=== PATIENT | male | born 1975 | race Caucasian/White ===

== ENCOUNTER 2018-12-19 20:14 | Emergency (ER) | payer SELFPAY ==
[~2018-12-19] VITALS: Ht 175.3 cm; Wt 65.0 kg
[~2018-12-19 20:14] MED LIST: ALBU18HF INHALATION; AMOX500C2 PO; IBUP-1542 PO; PHEN177S43 MT
[2018-12-19 20:17] VITALS: Ht 175.3 cm; Wt 65.0 kg
[2018-12-19 22:03] VITALS: BP 122/78; PULSE 66; RESP 18
--- NOTE | 2018-12-19 22:35 | ERD ---
ER Documentation Chief Complaint Chief Complaint SORE THROAT X 2 DAYS. HPI 43-year-old male brought in by with concerns for sore throat for the past 2 days. Symptoms constant and worse with eating. Associated symptoms include mild cough and shortness of breath only while coughing. He took no medication for relief of symptoms. He denies any fevers, chills, cough, chest pain, or other symptoms at this time. ROS All systems reviewed and are negative except as per history of present illness. Medications Home Meds Active Scripts Phenol* (Chloraseptic* [place]) 177 Ml [place].pump, 2 SPRAY MT Q2H PRN for SORE THROAT, #1 BOTTLE Prov:ARMANI HINOJOSA PA-C 12/19/18 Ibuprofen* (Motrin*) 600 Mg Tab, 600 MG PO Q6, #30 TAB Prov:ARMANI HINOJOSA PA-C 12/19/18 Amoxicillin* (Amoxicillin*) 500 Mg Cap, 500 MG PO TID for 10 Days, CAP Prov:ARMANI HINOJOSA PA-C 12/19/18 Albuterol Sulfate* (Ventolin HFA*) 18 Gm Hfa.aer.ad, 2 PUFF INHALATION Q4H, #1 INHALER Prov:ARMANI HINOJOSA PA-C 12/19/18 Allergies Allergies: Coded Allergies: No Known Allergy (Unverified , 12/19/18) PMhx/Soc Medical and Surgical Hx: pt denies Medical Hx, pt denies Surgical Hx Hx Alcohol Use: No Hx Substance Use: No Hx Tobacco Use: No Smoking Status: Never smoker FmHx Family History: No diabetes Physical Exam Vitals Vital Signs Date Temp Pulse Resp B/P (MAP) Pulse Ox O2 O2 Flow FiO2 Time Delivery Rate 12/19/18 99.0 66 18 122/78 97 Room Air 22:03 (93) 12/19/18 98.5 65 16 143/82 98 20:17 (102) Physical Exam const: No acute distress Head: Atraumatic Eyes: Normal Conjunctiva ENT: Normal External Ears, Nose and Mouth. Bilateral tonsillar hypertrophy and erythema. Scant exudate noted on the left. Uvula is midline. Airway is patent. Neck: Full range of motion. No meningismus. Negative Kernig or Brudzinski sign. Tender anterior cervical lymphadenopathy. Resp: No crackles. No respiratory distress. Mild inspiratory wheeze noted to the right lower lung field Cardio: Regular rate and rhythm, no murmurs Abd: Soft, non tender, non distended. Normal bowel sounds Skin: No petechiae or rashes Back: No midline or flank tenderness Ext: No cyanosis, or edema Neur: Awake and alert Psych: Normal Mood and Affect Procedures/MDM 43-year-old male presents emergency department complaining of sore throat and cough. History and physical examination was consistent with pharyngitis, presumed strep. He will be treated as an outpatient with prescription for phenol, ibuprofen, amoxicillin, Ventolin inhaler. No evidence to suggest status asthmaticus, peritonsillar abscess, sepsis, serious bacterial infection, or other emergent process. Patient was in agreement with the diagnosis, plan company for follow-up. He was advised to return immediately for any new or worsening or concerning symptoms. Departure Diagnosis: Primary Impression: Acute pharyngitis Pharyngitis/tonsillitis etiology: unspecified etiology Qualified Codes: J02.9 - Acute pharyngitis, unspecified Condition: Fair Patient Instructions: Pharyngitis, Strep (Presumed) [facility] Usted se garza hecho un examen mdico de control que le indica que no est en matthew condicin que requiera tratamiento urgente en el Departamento de Emergencia. Un estudio ms profundo y el tratamiento de bowie condicin pueden esperar sin ningn riesgo hasta que usted sea atendida/o en el consultorio de bowie mdico o matthew clnica. Es responsabilidad suya arreglar matthew leonides para el seguimiento del kayla. MANEJO DE CONDICIONES NO URGENTES EN EL FUTURO 1) Si usted tiene un mdico de atencin primaria: Usted debera llamar a bowie mdico de atencin primaria antes de venir al departamento de emergencia. Despus de las horas de consultorio, bowie doctor o bowie asociado/a est disponible por telfono. El mdico o enfermero de andre en el servicio telefnico puede asesorarle por arvin medio para atender el problema, o kayla contrario se puede programar matthew leonides. 2) Si usted no tiene un mdico de atencin primaria: Llame al mdico o clnica de referencia que aparece abajo angel las horas de consultorio para hacer matthew leonides para que le vean. CLINICAS: [place] [id number] [phone] [facility] [phone] [facility] [id number] [facility]. [place] [phone] [facility]. [place] [address] [phone] [facility]. [phone] [address] Additional Instructions: Llame al doctor MAANA y sonia matthew LEONIDES PARA DENTRO DE 1-2 PRECIADO.Dgale a la secretaria que nosotros le instruimos hacer esta leonides.Avise o llame si bowie condicin se empeora antes de la leonides. Regresa aqui si peor o no mejor. ARMANI HINOJOSA PA-C Dec 19, 2018 22:35
== END 2018-12-19 22:04 | disposition home or self-care (01) ==
LOC: FTE 20:14
DX: J02.9 Acute pharyngitis, unspecified (principal)
CPT/HCPCS: 99283